=== PATIENT | male | born 1990 | race African-American/Black ===

== ENCOUNTER → 2018-08-12 | Outpatient (CLI) | payer OTHER, SELFPAY ==
[~2018-08-12] MED LIST: MALA250T PO
[2018-08-12 13:01] LABS: BASO % 0.2 % (0.0-1.0); EOS % 0.8 % (0.0-3.0); HEMATOCRIT 45.6 % (42.0-52.0); LYMPH % 21.6 % (24.0-44.0); MEAN CORPUSCULAR HEMOGLOBIN 30.4 pg (27.0-33.0); MEAN CORPUSCULAR HGB CONC 32.9 g/dl (32.0-36.5); MEAN CORPUSCULAR VOLUME 92.5 fl (80.0-96.0); MONO # 0.8 10^3/uL (0.0-0.8); NEUTROPHILS # 2.9 10^3/uL (1.8-7.7); NEUTROPHILS % 60.2 % (36.0-66.0); PLATELET COUNT, AUTOMATED 194 10^3/uL (150-450); RED BLOOD COUNT 4.93 10^6/uL (4.30-6.10); WHITE BLOOD COUNT 4.8 10^3/uL (4.0-10.0)
[2018-08-12 13:07] LABS: ALT/SGPT 32 U/L (12-78); BILIRUBIN,TOTAL 1.1 MG/DL (0.2-1.0); BLOOD UREA NITROGEN 9 MG/DL (7-18); CALCIUM LEVEL 9.4 MG/DL (8.5-10.1); CARBON DIOXIDE LEVEL 29 MEQ/L (21-32); CHLORIDE LEVEL 103 MEQ/L (98-107); CREATININE FOR GFR 0.96 MG/DL (0.70-1.30); GLOMERULAR FILTRATION RATE > 60.0 (>60); GLUCOSE, FASTING 90 MG/DL (70-100); POTASSIUM SERUM 4.5 MEQ/L (3.5-5.1); SODIUM LEVEL 140 MEQ/L (136-145)
[2018-08-12 13:08] LABS: ALBUMIN 3.7 GM/DL (3.2-5.2); TOTAL PROTEIN 7.6 GM/DL (6.4-8.2)
== END ==
LOC: M WUC 09:06
PROVIDERS: ATTEND Physician Assistant
DX: R50.9 Fever, unspecified (principal)

== ENCOUNTER → 2018-08-13 | Outpatient (REF) | payer OTHER ==
[2018-08-14 12:12] LABS: BASO % 0.2 % (0.0-1.0); HEMATOCRIT 40.9 % (42.0-52.0); HEMOGLOBIN 13.7 g/dl (13.5-17.5); LYMPH # 0.8 10^3/uL (1.5-4.5); MEAN CORPUSCULAR HEMOGLOBIN 30.6 pg (27.0-33.0); MEAN CORPUSCULAR HGB CONC 33.5 g/dl (32.0-36.5); MEAN CORPUSCULAR VOLUME 91.5 fl (80.0-96.0); MONO # 0.8 10^3/uL (0.0-0.8); MONO % 18.5 % (0.0-5.0); NEUTROPHILS # 2.7 10^3/uL (1.8-7.7); NEUTROPHILS % 62.1 % (36.0-66.0); PLATELET COUNT, AUTOMATED 164 10^3/uL (150-450); RED BLOOD COUNT 4.47 10^6/uL (4.30-6.10); WHITE BLOOD COUNT 4.3 10^3/uL (4.0-10.0)
== END ==
LOC: M SFHCLERA 19:34
PROVIDERS: ATTEND Nurse Practitioner Family
DX: R50.9 Fever, unspecified (principal)

== ENCOUNTER 2018-08-14 10:40 | Emergency (ER) | payer OTHER ==
[~2018-08-14] VITALS: Ht 190.5 cm; Wt 90.9 kg
[2018-08-14] MEDS ORDERED: ACETAMINOPHEN 325 MG TAB PO ONE (11:00)
--- NOTE | 2018-08-14 11:23 | REP ---
Clinical: Systemic inflammatory response syndrome . Comparison: None . Findings: The mediastinum and cardiac silhouette are stable and within normal limits for portable technique. The lung luna are clear without acute consolidation, effusion, or pneumothorax. Skeletal structures are intact. Impression: No acute cardiopulmonary process appreciated. Electronically Signed by John Mclean MD 08/14/2018 11:16 A
[2018-08-14 11:30] LABS: BASO % 0.6 % (0.0-1.0); EOS % 0.3 % (0.0-3.0); HEMATOCRIT 41.2 % (42.0-52.0); HEMOGLOBIN 13.7 g/dl (13.5-17.5); LYMPH # 0.6 10^3/uL (1.5-4.5); LYMPH % 17.2 % (24.0-44.0); MEAN CORPUSCULAR HEMOGLOBIN 30.2 pg (27.0-33.0); MEAN CORPUSCULAR HGB CONC 33.3 g/dl (32.0-36.5); MEAN CORPUSCULAR VOLUME 90.7 fl (80.0-96.0); MONO # 0.9 10^3/uL (0.0-0.8); MONO % 26.3 % (0.0-5.0); NEUTROPHILS % 55.3 % (36.0-66.0); PLATELET COUNT, AUTOMATED 133 10^3/uL (150-450); RED BLOOD COUNT 4.54 10^6/uL (4.30-6.10); WHITE BLOOD COUNT 3.5 10^3/uL (4.0-10.0)
[2018-08-14 11:59] LABS: ALBUMIN 3.6 GM/DL (3.2-5.2); ALT/SGPT 24 U/L (12-78); BILIRUBIN,DIRECT 0.2 MG/DL (0.0-0.2); BILIRUBIN,TOTAL 0.9 MG/DL (0.2-1.0); BLOOD UREA NITROGEN 11 MG/DL (7-18); CALCIUM LEVEL 8.3 MG/DL (8.5-10.1); CARBON DIOXIDE LEVEL 27 MEQ/L (21-32); CHLORIDE LEVEL 105 MEQ/L (98-107); CREATININE FOR GFR 1.13 MG/DL (0.70-1.30); GLOMERULAR FILTRATION RATE > 60.0 (>60); GLUCOSE, FASTING 138 MG/DL (70-100); SODIUM LEVEL 139 MEQ/L (136-145); TOTAL PROTEIN 6.9 GM/DL (6.4-8.2)
[2018-08-14 12:07] LABS: INFLUENZA A AMPLIFICATION NEGATIVE (NEGATIVE); INFLUENZA B AMPLIFICATION NEGATIVE (NEGATIVE)
[2018-08-14 12:25] LABS: APPEARANCE, URINE HAZY (CLEAR); BACTERIA, URINE AUTO NEGATIVE (NEGATIVE); BILIRUBIN, URINE AUTO NEGATIVE (NEGATIVE); BLOOD, URINE BLOOD NEGATIVE (NEGATIVE); COLOR, URINE AMBER (YELLOW); GLUCOSE, URINE (UA) AUTO NEGATIVE (NEGATIVE); KETONE, URINE AUTO NEGATIVE (NEGATIVE); LEUKOCYTE ESTERASE, URINE AUTO NEGATIVE (NEGATIVE); MUCUS, URINE SMALL (NEGATIVE); NITRITE, URINE AUTO NEGATIVE (NEGATIVE); PROTEIN, URINE AUTO 1+ mg/dL (NEGATIVE); RBC, URINE AUTO 4 /HPF (0-3); SPECIFIC GRAVITY URINE AUTO 1.032 (1.002-1.035); SQUAMOUS EPITHELIAL CELL UR AU 0 /HPF (0-6); WBC, URINE AUTO 1 /HPF (0-3)
[2018-08-14] MEDS ORDERED: MALARONE 250/100MG (ATOVAQUONE/PROGUANIL) TABLET PO STA (14:00)
[2018-08-14] MEDS ORDERED: MALA250T PO (15:33)
[2018-08-14 15:55] VITALS: BP 124/79
[2018-08-14] MEDS ORDERED: MALARONE 250/100MG (ATOVAQUONE/PROGUANIL) TABLET PO SCH (18:00)
== END 2018-08-14 16:03 | disposition home or self-care (01) ==
LOC: M ED 10:40
DX: R50.9 Fever, unspecified (principal); B54 Unspecified malaria; B34.8 Other viral infections of unspecified site

== ENCOUNTER → 2018-09-07 | Outpatient (REF) | payer OTHER ==
[2018-09-07 12:16] LABS: BASO % 0.4 % (0.0-1.0); EOS # 0.1 10^3/uL (0.0-0.50); EOS % 2.7 % (0.0-3.0); HEMATOCRIT 43.5 % (42.0-52.0); HEMOGLOBIN 14.5 g/dl (13.5-17.5); LYMPH # 3.2 10^3/uL (1.5-4.5); LYMPH % 61.7 % (24.0-44.0); MEAN CORPUSCULAR HEMOGLOBIN 29.8 pg (27.0-33.0); MEAN CORPUSCULAR HGB CONC 33.3 g/dl (32.0-36.5); MEAN CORPUSCULAR VOLUME 89.5 fl (80.0-96.0); MONO # 0.6 10^3/uL (0.0-0.8); MONO % 12.2 % (0.0-5.0); NEUTROPHILS # 1.2 10^3/uL (1.8-7.7); PLATELET COUNT, AUTOMATED 234 10^3/uL (150-450); RED BLOOD COUNT 4.86 10^6/uL (4.30-6.10); WHITE BLOOD COUNT 5.2 10^3/uL (4.0-10.0)
== END ==
LOC: M SFHCPLAZ 10:11
PROVIDERS: ATTEND Internal Medicine Infectious Disease
DX: B50.9 Plasmodium falciparum malaria, unspecified (principal)

== ENCOUNTER → 2018-09-21 | Outpatient (REF) | payer OTHER ==
[2018-09-21 11:14] LABS: SEMEN APPEARANCE OPAQUE (OPAQUE); SEMEN VISCOSITY VISCOUS (LIQUID); SEMEN pH 7.5 (7.0-8.0); SPERM CONCENTRATION 11.8 M/ml (>=15.0); WBC CONCENTRATION >1 M/ml (<=1 M/ml)
== END ==
LOC: M LAB REF 11:05
PROVIDERS: ATTEND Obstetrics & Gynecology
DX: N46.8 Other male infertility (principal)

== ENCOUNTER → 2018-10-06 | Outpatient (REF) | payer OTHER ==
[2018-10-06 11:33] LABS: SEMEN APPEARANCE OPAQUE (OPAQUE)
[2018-10-06 11:34] LABS: SEMEN VISCOSITY VISCOUS (LIQUID); SEMEN VOLUME 3.5 ml (4.0-5.0); SPERM CONCENTRATION 22.8 M/ml (>=15.0); WBC CONCENTRATION <=1 M/ml (<=1 M/ml)
== END ==
LOC: M LAB REF 10:34
PROVIDERS: ATTEND Obstetrics & Gynecology
DX: N46.8 Other male infertility (principal)

== ENCOUNTER 2018-11-11 12:46 | Emergency (ER) | payer OTHER ==
[~2018-11-11] VITALS: Ht 182.9 cm; Wt 92.5 kg
--- NOTE | 2018-11-11 13:18 | REP ---
Left knee series: Five views. History: Pain. Findings: Five views of the left knee demonstrate normal bones, joints, and soft tissues. No fracture or subluxation is seen. Impression: No acute abnormality. Electronically Signed by Marcin Godoy MD 11/11/2018 01:10 P
[2018-11-11] MEDS ORDERED: NAPR-50 PO (14:08)
[2018-11-11 14:13] VITALS: BP 126/73
== END 2018-11-11 14:17 | disposition home or self-care (01) ==
LOC: M ED 12:46
DX: M76.52 Patellar tendinitis, left knee (principal)

== ENCOUNTER → 2018-11-25 | Outpatient (CLI) | payer OTHER ==
[~2018-11-25] MED LIST changes: +NAPR-837 PO
[2018-11-25 14:01] LABS: ESTRADIOL 25.8 PG/ML (<39.8); FOLLICLE STIMULATING HORMONE 3.9 mIU/mL (1.4-18.1); LUTEINIZING HORMONE 6.2 mIU/mL (1.5-9.3); PROLACTIN 6.9 NG/ML (2.1-17.7)
[2018-11-27 00:08] LABS: SEX HORMONE BINDING GLOBULIN 45.6 nmol/L (16.5-55.9); TESTOSTERONE FREE (DIRECT) 14.3 pg/mL (8.7-25.1)
== END ==
LOC: M SMT 09:26
PROVIDERS: ATTEND Nurse Practitioner Women's Health
DX: N46.9 Male infertility, unspecified (principal)

== ENCOUNTER → 2018-11-26 | Outpatient (REF) | payer OTHER ==
[2018-11-26 11:25] LABS: SEMEN APPEARANCE OPAQUE (OPAQUE); SEMEN VISCOSITY LIQUID (LIQUID); SEMEN pH 8.5 (7.0-8.0); SPERM CONCENTRATION 25.9 M/ml (>=15.0); WBC CONCENTRATION >1 M/ml (<=1 M/ml)
== END ==
LOC: M SMT 11:17
PROVIDERS: ATTEND Nurse Practitioner Women's Health
DX: N46.9 Male infertility, unspecified (principal); N46.11 Organic oligospermia

== ENCOUNTER → 2018-11-29 | Outpatient (CLI) | payer OTHER ==
--- NOTE | 2018-11-30 07:56 | REP ---
Scrotal ultrasound: The right testis measures 4.4-0.3 x 2.8 cm. The left testis measures 4.8 x 2.1 x 2.9 cm. The testes are normal size. There are no testicular masses or cysts. There is vascular flow in both testes. The Doppler resistive index of the parenchymal arteries in the right testis is 0.58 and left testis 0.53. The right and left epididymal heads are unremarkable. There are no epididymal head cysts or masses. There are small bilateral varicoceles. The left varicocele is slightly larger. Impression: Small bilateral varicoceles. The left varicocele is slightly larger. Otherwise, negative scrotal ultrasound. Electronically Signed by Adam Manzo MD 11/29/2018 07:26 A
== END ==
LOC: M RAD 06:38
PROVIDERS: ATTEND Nurse Practitioner Women's Health
DX: I86.1 Scrotal varices (principal); N46.11 Organic oligospermia

== ENCOUNTER 2018-12-18 15:59 | Emergency (ER) | payer OTHER ==
[~2018-12-18] VITALS: Ht 182.9 cm; Wt 95.0 kg
[2018-12-18 16:00] VITALS: BP 126/61
[2018-12-18] MEDS ORDERED: DERMABOND TOPICAL SKIN ADHESIVE TOP ONE (16:30)
[2018-12-18] MEDS ORDERED: ADACEL/BOOSTRIX VACCINE (DIPHTH/PERTUSS/ACELL/TETANUS)0.5ML SYR (90715) IM ONE (16:30)
== END 2018-12-18 16:51 | disposition home or self-care (01) ==
LOC: M ED 15:59
DX: S61.411A Laceration without foreign body of right hand, initial encounter (principal); W26.0XXA Contact with knife, initial encounter; Y92.018 Other place in single-family (private) house as the place of occurrence of the external cause